=== PATIENT | female | born 1965 | race Hispanic/Latino ===

== ENCOUNTER 2021-08-26 11:37 | Emergency (ER) | payer BC, OTHER ==
[~2021-08-26] VITALS: Ht 160 cm; Wt 83.9 kg
[~2021-08-26 11:37] MED LIST: ASPIR 8181 MG; LEVOTHYROXINE25 MCG PO; LOSARTAN POTASS25 MG PO; METOPROLOL TART25 MG PO; OMEPRAZOLE40 MG PO; PROBIOTIC & AC1 EACH; [UNRECOGNIZED DRUG - OTHER] PO
== END 2021-08-26 14:19 | disposition home or self-care (01) ==
LOC: ER 12:07
DX: S01.81XA Laceration without foreign body of other part of head, initial encounter (principal); I10 Essential (primary) hypertension; E03.9 Hypothyroidism, unspecified; V89.2XXA Person injured in unspecified motor-vehicle accident, traffic, initial encounter; Z79.82 Long term (current) use of aspirin; Z79.899 Other long term (current) drug therapy
CPT/HCPCS: 70450; 70486; 72125; 99283